=== PATIENT | female | born 1985 | race Caucasian/White ===

== ENCOUNTER 2016-11-14 08:44 | Emergency (ER) | payer MEDICAID ==
[~2016-11-14] VITALS: Ht 182.9 cm; Wt 81.0 kg
[2016-11-14 08:46] VITALS: BP 109/62; PULSE 74; RESP 20; TEMP 98.4; O2SAT 100
[2016-11-14] MEDS ORDERED: ASPI1TAB93 (08:58)
--- NOTE | 2016-11-14 09:13 | PD ---
HPI Chief Complaint: Musculoskeletal Complaint Time Seen by Provider: 09:06 Travel History International Travel<30 days: No Contact w/Intl Traveler<30days: No Traveled to known affect area: No History of Present Illness HPI 31-year-old female presents to the emergency Department with complaint of left knee pain since Friday. Denies injury. She states she did fall yesterday and landed on her knee, but states her knee is no more painful than it was prior to the fall yesterday. She denies paresthesias, loss of sensation, decreased range of motion, decreased strength to the affected extremity. Reports being ambulatory on the affected extremity. Pain is to the medial aspect of the knee. Denies fever, vomiting. Has been taking Excedrin for symptom management. Pain is worse with bending the knee. Pain is decreased with straightening the knee. Is also wearing a knee brace for support. Allergies to doxycycline, ibuprofen, penicillin, Rocephin. Has no other medical complaints. No other modifying factors or associated signs and symptoms. History Social History Alcohol Use: No Tobacco Use: No (stopped 01/23/13) Allergies-Medications (Allergen,Severity, Reaction): Coded Allergies: Doxycycline (Verified Allergy, Severe, NASAL EDEMA PER PT, 11/14/16) Ibuprofen (Unverified Allergy, Severe, Anaphylaxis, 11/14/16) Rocephin (Verified Allergy, Severe, Had to be given PO Benadryl prior to for the itching. , 11/14/16) Penicillin (Verified Adverse Reaction, Severe, VOMITS, 11/14/16) Reported Meds & Prescriptions Reported Meds & Active Scripts Active Reported Excedrin Extra Strength (Bbwskkt-Rmwznjzbxmlkp-Ejoszqtw) 1 Tab Tab Review of Systems Except as stated in HPI: all other systems reviewed are Neg Physical Exam Narrative GENERAL: Well-nourished, well-developed female patient, in no acute distress; afebrile, nontoxic-appearing SKIN: Warm and dry. HEAD: Atraumatic. Normocephalic. EYES: Pupils equal and round. No scleral icterus. No injection or drainage. ENT: Mucosa pink and moist. Airway patent. NECK: Trachea midline. CARDIOVASCULAR: Regular rate. RESPIRATORY: No accessory muscle use. GASTROINTESTINAL: Flat. MUSCULOSKELETAL: Left nonedematous, nonerythematous, and without ecchymosis; full range of motion and flexion to 90; point tenderness to the medial aspect; joint stable with negative drawer test; no obvious deformity. Left Lower extremity is supple and non-tense with 2+ pedal pulse and sensory intact and without erythema or edema. Ambulatory in room with a limp to the left lower extremity. NEUROLOGICAL: Awake and alert. Oriented 3. No obvious cranial nerve deficits. Motor grossly within normal limits. Normal speech. PSYCHIATRIC: Appropriate mood and affect; insight and judgment normal. Data Data Last Documented VS Vital Signs Date Time Temp Pulse Resp B/P Pulse Ox O2 Delivery O2 Flow Rate FiO2 11/14/16 08:46 98.4 74 20 109/62 100 Room Air MDM Medical Screen Exam Complete: Yes Emergency Medical Condition: No Differential Diagnosis Knee strain, meniscus tear, arthritis, ACL tear Narrative Course 31-year-old female with left knee pain that started and is unchanged prior to a fall yesterday. The knee is not edematous, nonerythematous and without ecchymosis. Patient is ambulatory on the affected extremity. She has a knee brace in place. I do not suspect fracture or dislocation on examination; I did offer to do an x-ray secondary to the fall and the patient declined. I offered the patient crutches for support and she declined. I with the patient a nonnarcotic for pain control and she declined. Patient provided [facility] information sheet. Vital signs are stable and the patient is stable for outpatient follow-up and treatment. The patient has no urgent or emergent medical complaints. There is no emergent or urgent medical need at this time. I instructed the patient to follow up with their primary care provider. A medical screening exam was performed: At the time of evaluation the presenting medical condition was determined not to be of an emergent nature. The patient was given the option of receiving additional care, but declined. Patient was given options for additional community resources from which to obtain care. The Patient Has Been advised to seek medical attention for their presenting complaint. The patient has been advised to return to the ER at any time if an emergent condition develops. Primary Impression: Encounter for medical screening examination Condition: Stable Honey Ayala Nov 14, 2016 09:13
== END 2016-11-14 09:10 | disposition left against medical advice (07) ==
LOC: NEPK 08:44
DX: M25.562 Pain in left knee (principal)
CPT/HCPCS: 99281

== ENCOUNTER 2016-12-16 12:16 | Emergency (ER) | payer SELFPAY ==
[~2016-12-16] VITALS: Ht 182.9 cm; Wt 80.0 kg
[~2016-12-16 12:16] MED LIST: ASPI1TAB93
[2016-12-16 12:18] VITALS: BP 111/74; PULSE 80; RESP 20; TEMP 98.9; O2SAT 97
--- NOTE | 2016-12-16 12:27 | PD ---
Physical Exam Date Seen by Provider: Dec 16, 2016 Time Seen by Provider: 12:25 Narrative 31 y/o female with severe sore throat and feverish for the past 3 days. Hurts to swallow or eat. Pain 10/10. no other symptoms noted. Vital signs reviewed. Patient stable. Awaiting Bed placement. Data Data Last Documented VS Vital Signs Date Time Temp Pulse Resp B/P Pulse Ox O2 Delivery O2 Flow Rate FiO2 12/16/16 12:18 98.9 80 20 111/74 97 MDM Medical Record Reviewed: Yes Supervised Visit with JAIME: Yes Condition: Stable Manolo Youssef Dec 16, 2016 12:27
[2016-12-16] MEDS ORDERED: AZIT500T2 PO (13:37)
[2016-12-16] MEDS ORDERED: MAGICPED SWISH-SPIT (13:37)
--- NOTE | 2016-12-16 13:37 | PD ---
HPI Chief Complaint: ENT Complaint Time Seen by Provider: 13:32 Travel History International Travel<30 days: No Contact w/Intl Traveler<30days: No Traveled to known affect area: No History of Present Illness HPI 31-year-old female presents to emergency department complaining of sore throat since Friday. Denies lump in throat, difficulty swallowing, unusual drooling. Reports painful swallowing. Reports subjective fever yesterday. Denies headache, nausea, vomiting. Denies abdominal pain. Denies nasal congestion, cough, ear pain. Reports voice is hoarse. Has been using throat lozenges for symptom management. Symptoms are mild in severity. Allergies to doxycycline, ibuprofen, penicillin, Rocephin. Has no other medical complaints. No other modifying factors or associated signs and symptoms. PFSH Past Medical History Diminished Hearing: No Genitourinary: Yes Musculoskeletal: Yes Neurologic: Yes Immunizations Current: Yes Migraines: Yes PNEUMOCCOCAL Vaccine (Year): 2 ?: Not Miscarriage: 0 : 0 Past Surgical History Section: Yes Ear Surgery: Yes Eye Surgery: Yes ( A INFANT TRIED TO CORRECT A LAZY EYE) Other Surgery: Yes (insertion of IUD) Social History Alcohol Use: No Tobacco Use: No (stopped 01/23/13) Substance Use: No Allergies-Medications (Allergen,Severity, Reaction): Coded Allergies: Doxycycline (Verified Allergy, Severe, NASAL EDEMA PER PT, 12/16/16) Ibuprofen (Unverified Allergy, Severe, Anaphylaxis, 12/16/16) Rocephin (Verified Allergy, Severe, Had to be given PO Benadryl prior to for the itching. , 12/16/16) Penicillin (Verified Adverse Reaction, Severe, VOMITS, 12/16/16) Reported Meds & Prescriptions Reported Meds & Active Scripts Active Azithromycin 500 Mg Tab 500 Mg PO DAILY Magic Mouthwash Pediatric/Adult Liq (Lidocaine/Diphenhydr/Alum/Mg/Simeth) 60 Ml Susp 5 Ml SWISH-SPIT Q3HR PRN Each 5mL contains: Diphenydramine 4.5mg, Viscous Lidocaine 2% 10mg, Maalox Advanced Regular Strength 2.7ml Reported Excedrin Extra Strength (Fanzylp-Wklchekxhcatq-Hjortgnd) 1 Tab Tab Review of Systems Except as stated in HPI: all other systems reviewed are Neg Physical Exam Narrative GENERAL: Well-nourished, well-developed female patient, in no acute distress; afebrile, nontoxic-appearing SKIN: Warm and dry. No rash. HEAD: Atraumatic. Normocephalic. EYES: Pupils equal and round at 3 mm with brisk reaction. No scleral icterus. No injection or drainage. PERRLA. ENT: Mucosa pink and dry. Pharynx with 2+ tonsils; with erythema, exudate, and edema. No Uvular edema. No uvular, palatal, or tonsillar deviation. Airway patent. Voice is hoarse. EARS: Bilateral pinnae and external canals appear within normal limits. Bilateral tympanic membranes without erythema, dullness or perforation.. NECK: Trachea midline. Anterior cervical lymphadenopathy and tenderness. CARDIOVASCULAR: Regular rate. RESPIRATORY: No accessory muscle use. GASTROINTESTINAL: Rounded. MUSCULOSKELETAL: No obvious deformities. No clubbing. No cyanosis. No edema. NEUROLOGICAL: Awake and alert. Oriented 3. No obvious cranial nerve deficits. Motor grossly within normal limits. Normal speech. Moves all extremities. PSYCHIATRIC: Appropriate mood and affect; insight and judgment normal. Data Data Last Documented VS Vital Signs Date Time Temp Pulse Resp B/P Pulse Ox O2 Delivery O2 Flow Rate FiO2 12/16/16 12:18 98.9 80 20 111/74 97 MDM Medical Decision Making Medical Screen Exam Complete: Yes Emergency Medical Condition: Yes Medical Record Reviewed: Yes Differential Diagnosis Exudative pharyngitis, strep pharyngitis, viral pharyngitis, less likely peritonsillar abscess Narrative Course 31-year-old female physical exam consistent with exudative pharyngitis. Patient is afebrile and nontoxic-appearing. Reports subjective fever yesterday. Denies vomiting. Patient allergic to penicillin, doxycycline, ibuprofen, Rocephin. Azithromycin and Magic mouthwash prescribed for home. Instructed patient to follow up with primary care provider. Patient verbalizes understanding and agreement with treatment plan. Patient is medically cleared and stable for discharge. Discussed reasons to return to the emergency department. Patient agrees with treatment plan. The patients vital signs are stable and the patient is stable for outpatient follow-up and treatment. Patient discharged home, stable and in no acute distress. Diagnosis Primary Impression: Exudative pharyngitis Referrals: Primary Care Physician Patient Instructions: General Instructions, Pharyngitis (ED) Additional Instructions: Take Antibiotics as prescribed and complete full course of antibiotics Throw away and change your toothbrush 24 hours after starting antibiotics Get plenty of sleep/rest Rest your voice Drink plenty of fluids to prevent dehydration Use warm saltwater gargles to soothe throat pain Use an air humidifier/turn off ceiling fans Use throat lozenges as needed for sore throat Use ibuprofen or acetaminophen as needed to relieve pain and fever Follow-up with your primary care provider within 2-4 days Return immediately to the emergency department with worsening of symptoms Med/Other Pt SpecificInfo: Prescription(s) given Scripts Azithromycin 500 Mg [id number] Mg PO DAILY #5 TAB Ref 0 Prov:Honey Ayala 12/16/16 Oqfqhuuhbuatkea-Tumsxebso-Adw-Alum-Simeth Liq (Magic Mouthwash Pediatric/Adult Liq)60 Ml Susp5 Ml SWISH-SPIT Q3HR PRN (SORE THROAT) #60 ML Ref 0 Each 5mL contains: Diphenydramine 4.5mg, Viscous Lidocaine 2% 10mg, Maalox Advanced Regular Strength 2.7ml Prov:Honey Ayala 12/16/16 Disposition: 01 DISCHARGE HOME Condition: Stable Honey Ayala Dec 16, 2016 13:37
== END 2016-12-16 13:49 | disposition home or self-care (01) ==
LOC: NEPK 12:16
DX: J02.9 Acute pharyngitis, unspecified (principal)
CPT/HCPCS: 99283

== ENCOUNTER 2017-05-19 10:53 | Emergency (ER) | payer MEDICAID ==
[~2017-05-19] VITALS: Ht 182.9 cm; Wt 80.0 kg
[~2017-05-19 10:53] MED LIST changes: +AZIT500T2 PO; +MAGICPED SWISH-SPIT
[2017-05-19 10:55] VITALS: BP 113/59; PULSE 83; RESP 14; TEMP 98.3; O2SAT 99
[2017-05-19 12:52] LABS: AUTOMATED NEUTROPHIL # 2.4 TH/MM3 (1.8-7.7); BASOPHIL % 0.4 % (0.0-2.0); EOSINOPHIL # 0.1 TH/MM3 (0-0.4); EOSINOPHIL % 1.7 % (0.0-4.0); HEMATOCRIT 40.6 % (35.0-46.0); HEMOGLOBIN 14.1 GM/DL (11.6-15.3); LYMPH % 45.7 % (9.0-44.0); LYMPHOCYTE # 2.5 TH/MM3 (1.0-4.8); MEAN CELL VOLUME 92.1 FL (80.0-100.0); MEAN CORPUSCULAR HGB CONC 34.7 % (32.0-36.0); MEAN PLATELET VOLUME 9.2 FL (7.0-11.0); MONO % 7.5 % (0.0-8.0); MONOCYTE # 0.4 TH/MM3 (0-0.9); NEUT % 44.7 % (16.0-70.0); PLATELET COUNT 247 TH/MM3 (150-450); RED CELL DISTRIBUTION WIDTH 12.5 % (11.6-17.2); WHITE BLOOD COUNT 5.5 TH/MM3 (4.0-11.0)
[2017-05-19 12:56] LABS: BILIRUBIN, URINE NEG (NEG); BLOOD, URINE SMALL (NEG); GLUCOSE,URINE NEG (NEG); KETONE, URINE NEG (NEG); MUCUS URINE FEW /lpf (OCC); NITRITE,URINE NEG (NEG); SQUAMOUS EPITHELIAL CELL URINE 2 /hpf (0-5); URINE COLOR LIGHT-YELLOW (YELLW/STRAW); URINE LEUKOCYTE ESTERASE NEG (NEG)
[2017-05-19 13:12] LABS: ALBUMIN 3.9 GM/DL (3.4-5.0); AST (GOT) 15 U/L (15-37); BICARBONATE 28.7 MEQ/L (21.0-32.0); BLOOD UREA NITROGEN 10 MG/DL (7-18); CALCIUM 9.4 MG/DL (8.5-10.1); CHLORIDE 106 MEQ/L (98-107); CREATININE 0.72 MG/DL (0.50-1.00); GLOMERULAR FILTRATION RATE 95 ML/MIN (>89); GLUCOSE,RANDOM 75 MG/DL (74-106); LIPASE 118 U/L (73-393); SODIUM (NA) 139 MEQ/L (136-145)
[2017-05-19 13:13] LABS: ALT (GPT) 19 U/L (10-53)
[2017-05-19 13:15] LABS: ALKALINE PHOSPHATASE 49 U/L (45-117); TOTAL BILIRUBIN ADULT 1.5 MG/DL (0.2-1.0); TOTAL PROTEIN 7.1 GM/DL (6.4-8.2)
--- NOTE | 2017-05-19 13:46 | PD ---
HPI Chief Complaint: Abdominal Pain Time Seen by Provider: 13:33 Travel History International Travel<30 days: No Contact w/Intl Traveler<30days: No History of Present Illness HPI ONE DAY COURSE OF SUPRAPUBIC AREA PAIN, 6/10,NONRADIATING, DENIES VAG BLEEDING, DENIES FREQUENCY/URGENCY/DYSURIA, BUT HAS HAD DIARRHEA ALONG WITH CRAMPY PAIN. SOME NAUSEA BUT NO VOMITING. PFSH Past Medical History Diminished Hearing: No Gastrointestinal Disorders: No Genitourinary: Yes Implanted Vascular Access Dvce: No Musculoskeletal: Yes Neurologic: Yes Immunizations Current: Yes Migraines: Yes PNEUMOCCOCAL Vaccine (Year): 2 ?: Not LMP: 05/2017 Miscarriage: 0 : 0 Past Surgical History Section: Yes Ear Surgery: Yes Eye Surgery: Yes ( A INFANT TRIED TO CORRECT A LAZY EYE) Other Surgery: Yes (insertion of IUD) Social History Alcohol Use: No Tobacco Use: No (stopped 01/23/13) Substance Use: No Allergies-Medications (Allergen,Severity, Reaction): Coded Allergies: ceftriaxone (Verified Allergy, Severe, Had to be given PO Benadryl prior to for the itching. , 05/19/17) doxycycline (Verified Allergy, Severe, NASAL EDEMA PER PT, 05/19/17) ibuprofen (Verified Allergy, Severe, Anaphylaxis, 05/19/17) penicillin G (Verified Adverse Reaction, Severe, VOMITS, 05/19/17) Reported Meds & Prescriptions Reported Meds & Active Scripts Active Data Data Last Documented VS Vital Signs Date Time Temp Pulse Resp B/P (MAP) Pulse Ox O2 Delivery O2 Flow Rate FiO2 05/19/17 10:55 98.3 83 14 113/59 (77) 99 Orders Orders Complete Blood Count With Diff (05/19/17 11:23) Comprehensive Metabolic Panel (05/19/17 11:23) Lipase (05/19/17 11:23) Urinalysis - C+S If Indicated (05/19/17 11:23) Ed Urine Pregnancytest Poc (05/19/17 11:23) Ct Abd/Pel W/O Iv Contrast (05/19/17 14:02) Labs Laboratory Tests Test 05/19/17 11:59 White Blood Count 5.5 TH/MM3 Red Blood Count 4.40 MIL/MM3 Hemoglobin 14.1 GM/DL Hematocrit 40.6 % Mean Corpuscular Volume 92.1 FL Mean Corpuscular Hemoglobin 32.0 PG Mean Corpuscular Hemoglobin Concent 34.7 % Red Cell Distribution Width 12.5 % Platelet Count 247 TH/MM3 Mean Platelet Volume 9.2 FL Neutrophils (%) (Auto) 44.7 % Lymphocytes (%) (Auto) 45.7 % Monocytes (%) (Auto) 7.5 % Eosinophils (%) (Auto) 1.7 % Basophils (%) (Auto) 0.4 % Neutrophils # (Auto) 2.4 TH/MM3 Lymphocytes # (Auto) 2.5 TH/MM3 Monocytes # (Auto) 0.4 TH/MM3 Eosinophils # (Auto) 0.1 TH/MM3 Basophils # (Auto) 0.0 TH/MM3 CBC Comment DIFF FINAL Differential Comment Urine Color LIGHT-YELLOW Urine Turbidity CLEAR Urine pH 7.0 Urine Specific Bowie 1.006 Urine Protein NEG mg/dL Urine Glucose (UA) NEG mg/dL Urine Ketones NEG mg/dL Urine Occult Blood SMALL Urine Nitrite NEG Urine Bilirubin NEG Urine Urobilinogen LESS THAN 2.0 MG/DL Urine Leukocyte Esterase NEG Urine RBC 1 /hpf Urine WBC LESS THAN 1 /hpf Urine Squamous Epithelial Cells 2 /hpf Urine Mucus FEW /lpf Microscopic Urinalysis Comment CULT NOT INDICATED Blood Urea Nitrogen 10 MG/DL Creatinine 0.72 MG/DL Random Glucose 75 MG/DL Total Protein 7.1 GM/DL Albumin 3.9 GM/DL Calcium Level 9.4 MG/DL Alkaline Phosphatase 49 U/L Aspartate Amino Transf (AST/SGOT) 15 U/L Alanine Aminotransferase (ALT/SGPT) 19 U/L Total Bilirubin 1.5 MG/DL Sodium Level 139 MEQ/L Potassium Level 3.8 MEQ/L Chloride Level 106 MEQ/L Carbon Dioxide Level 28.7 MEQ/L Anion Gap 4 MEQ/L Estimat Glomerular Filtration Rate 95 ML/MIN Lipase 118 U/L [facility] Medical Decision Making Medical Screen Exam Complete: Yes Emergency Medical Condition: Yes Medical Record Reviewed: Yes Differential Diagnosis UTI V COLITIS V DIVERTIC V KIDNEY STONES V ENTERITIS Diagnosis Primary Impression: ENTERITIS Patient Instructions: Colitis (ED), General Instructions Scripts Tramadol (Ultram) 50 Mg Tab 50 MG PO Q6H Y for PAIN, #12 TAB 0 Refills Prov: Joby Mueller MD 05/19/17 Ciprofloxacin (Cipro) 500 Mg Tab 500 MG PO BID for Infection for 5 Days, #10 TAB 0 Refills Prov: Joby Mueller MD 05/19/17 Metronidazole (Flagyl) 500 Mg Tab 500 MG PO TID for Infection for 7 Days, #21 TAB 0 Refills Prov: Joby Mueller MD 05/19/17 Disposition: 01 DISCHARGE HOME Condition: Stable Joby Mueller MD May 19, 2017 13:46
--- NOTE | 2017-05-19 14:44 | RADRPT ---
EXAM DATE/TIME: 05/19/2017 14:20 [place] COMPARISON: No previous studies available for comparison. INDICATIONS : Lower abdominal pain with diarrhea since this morning ORAL CONTRAST: No oral contrast ingested. RADIATION DOSE: 8.17 CTDIvol (mGy) MEDICAL HISTORY : None SURGICAL HISTORY : None. ENCOUNTER: Initial ACUITY: 1 day PAIN SCALE: 6/10 LOCATION: Bilateral lower quadrant TECHNIQUE: Volumetric scanning of the abdomen and pelvis was performed. Using automated exposure control and ad justment of the mA and/or kV according to patient size, radiation dose was kept as low as reasonably achievable to obtain optimal diagnostic quality images. DICOM format image data is available electro nically for review and comparison. FINDINGS: Lung base is are clear. The liver spleen, pancreas and adrenals unremarkable Right kidney: Tiny 1 mm calcification lower pole right kidney There are no calcifications along expected course of the right ureter Left kidney: There are 2 small less than 3 mm stones in the left kidney with no calcification along expected cour se of the left ureter There is no adenopathy No inflammatory changes Multiple phleboliths are seen in the pelvis. There is no adnexal mass There is no evidence for colitis CONCLUSION: Bilateral nonobstructing renal stones. There is no evidence for colitis Ricardo Harmon MD FACR on May 19, 2017 at 14:38 Board Certified Radiologist. This report was verified electronically.
[2017-05-19] MEDS ORDERED: CIPR-9 PO (15:31)
[2017-05-19] MEDS ORDERED: TRAM50 PO (15:31)
[2017-05-19] MEDS ORDERED: METR-1 PO (15:31)
== END 2017-05-19 16:07 | disposition home or self-care (01) ==
LOC: NEPD 10:53
DX: K52.9 Noninfective gastroenteritis and colitis, unspecified (principal); N20.0 Calculus of kidney; Z88.0 Allergy status to penicillin; Z88.6 Allergy status to analgesic agent; Z88.8 Allergy status to other drugs, medicaments and biological substances
CPT/HCPCS: 74176; 80053; 81001; 83690; 84703; 85025; 99284